=== PATIENT | female | born 2000 | race Caucasian/White ===

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

== ENCOUNTER 2022-07-11 08:22 | Emergency (ER) | payer OTHER ==
[2022-07-11 08:28] VITALS: RESP 18
--- NOTE | 2022-07-11 08:44 | ED ---
Female Urogenital HPI - General Chief complaint: Urogenital Stated complaint: UTI Time Seen by Provider: 07/11/22 08:31 Source: patient, RN notes reviewed Mode of arrival: ambulatory Limitations: no limitations - History of Present Illness Initial comments: Patient is a pleasant 21-year-old female presenting to the emergency room with complaints of urinary frequency and urgency ongoing for the last 2 days. She reports that the frequency has become increasingly bothersome with decreased amounts of voiding when she does go. She also reports some pelvic pressure. She denies associated symptoms including any abdominal pain not related to pelvic pressure, nausea, vomiting, flank pain, fevers or chills. She reports that she took Azo [id number] for 2 days per the bottles instructions without any improvement in symptoms. She denies any concerns for STDs. She does report that her last menstrual cycle was approximately one month ago and she is due to start soon. Her only past medical history is asthma and she denies any recent exacerbations. - Related Data Previous Rx's Medication Instructions Recorded Sulfamethox-Tmp 800-160Mg [Bactrim 1 tab PO Q12HR 5 Days #10 tab 07/11/22 DS 800-160 mg] Allergies Allergy/AdvReac Type Severity Reaction Status Date / Time Iodinated Contrast Media Allergy Anaphylaxis Verified 07/11/22 08:24 Review of Systems ROS Statement: Those systems with pertinent positive or pertinent negative responses have been documented in the HPI. ROS Other: All systems not noted in ROS Statement are negative. Past Medical History Past Medical History: Asthma History of Any Multi-Drug Resistant Organisms: None Reported Past Surgical History: Back Surgery Past Psychological History: Anxiety, Depression Smoking Status: Never smoker Past Alcohol Use History: None Reported Past Drug Use History: Marijuana General Exam Limitations: no limitations General appearance: alert, in no apparent distress Head exam: Present: atraumatic, normocephalic, normal inspection Eye exam: Present: normal appearance, PERRL, EOMI. Absent: scleral icterus, conjunctival injection, periorbital swelling ENT exam: Present: normal exam, mucous membranes moist Neck exam: Present: normal inspection, full ROM Respiratory exam: Absent: respiratory distress, accessory muscle use Cardiovascular Exam: Present: regular rate GI/Abdominal exam: Present: soft. Absent: distended, tenderness Extremities exam: Present: normal inspection. Absent: pedal edema, joint swelling Back exam: Present: normal inspection. Absent: CVA tenderness (R), CVA tenderness (L) Neurological exam: Present: alert, oriented X3, CN II-XII intact Psychiatric exam: Present: normal affect, normal mood Course Vital Signs 07/11/22 08:25 Temperature 98.9 F Pulse Rate 69 Respiratory 18 Rate Blood Pressure 112/78 O2 Sat by Pulse 99 Oximetry Medical Decision Making - Medical Decision Making 21-year-old female presenting to the emergency room from home with complaints of urinary frequency, urinary burning and mild pelvic pressure ongoing for 2 days with worsening of symptoms. No other associated symptoms. No significant abnormalities on exam indicating any need for diagnostic imaging. Will obtain urinalysis along with urine for hCG in the setting of due for next menstrual cycle. No indication for IV hydration, analgesics, antipyretics, or a ntiemetics at this time. Urine test negative. Urinalysis consistent with urinary tract infection. Discussed treatment options. Will treat with oral Bactrim. Encouraged good hydration. Will discharge home in stable condition. Encouraged follow-up with primary care provider; return parameters to the emergency room reviewed. Case discussed with Dr. Coley. - Lab Data Lab Results 07/11/22 07/11/22 Range/Units 08:36 08:36 Urine Color Dark Brown Urine Appearance Turbid H (Clear) Urine pH 6.0 (5.0-8.0) Ur Specific [place] 1.023 (1.001-1.035) Urine Protein 2+ H (Negative) Urine Glucose (UA) Negative (Negative) Urine Ketones Negative (Negative) Urine Blood Large H (Negative) Urine Nitrite Positive H (Negative) Urine Bilirubin 1+ H (Negative) Urine Urobilinogen 2.0 (<2.0) mg/dL Ur Leukocyte Esterase Large H (Negative) Urine RBC >182 H (0-5) /hpf Urine WBC >182 H (0-5) /hpf Urine WBC Clumps Moderate H (None) /hpf Ur Squamous Epith Cells 3 (0-4) /hpf Urine Bacteria Few H (None) /hpf Urine Mucus Few H (None) /hpf Urine HCG, Qual Not Detected (Not Detectd) Disposition Clinical Impression: Urinary tract infection Disposition: HOME SELF-CARE Condition: Stable Instructions (If sedation given, give patient instructions): Urinary Tract Infection in Women (ED) Additional Instructions: Please complete course of antibiotic as prescribed. Please drink plenty of fluids, staying well-hydrated. Please follow-up with your primary care provider. Please return to the Emergency Department if symptoms worsen or any other concerns. Prescriptions: Sulfamethox-Tmp 800-160Mg [Bactrim DS 800-160 mg] 1 tab PO Q12HR 5 Days #10 tab Is patient prescribed a controlled substance at d/c from ED?: No Referrals: Lázaro Fairchild MD [Primary Care Provider] - 1-2 days Time of Disposition: 09:41
[2022-07-11 09:07] LABS: Appearance,Urine Turbid (Clear); Bacteria,Urine Few /hpf; Bilirubin,Urine 1+ (Negative); Blood,Urine Large (Negative); Color,Urine Dark Brown; Glucose,Urine (UA) Negative (Negative); Ketones,Urine Negative (Negative); Leukocyte Esterase,Urine Large (Negative); Mucus,Urine Few /hpf; Nitrite,Urine Positive (Negative); Protein,Urine 2+ (Negative); RBC,Urine >182 /hpf (0-5); Squamous Epithelial Cell,Urine 3 /hpf (0-4); WBC,Urine >182 /hpf (0-5)
[2022-07-11 09:32] LABS: Specific Gravity,Urine 1.023 (1.001-1.035)
[2022-07-11 09:48] VITALS: BP 112/77; PULSE 88; TEMP 98.4
== END 2022-07-11 09:48 | disposition home or self-care (01) ==
LOC: EC 08:22
DX: N39.0 Urinary tract infection, site not specified (principal); J45.909 Unspecified asthma, uncomplicated; F41.9 Anxiety disorder, unspecified; F32.A Depression, unspecified; F12.90 Cannabis use, unspecified, uncomplicated; Z91.041 Radiographic dye allergy status
CPT/HCPCS: 81001; 81025; 87086; 99283